=== PATIENT | male | born 1940 | race Caucasian/White ===

== ENCOUNTER 2017-02-22 09:04 | Observation (INO) | payer OTHER ==
[~2017-02-22] VITALS: Ht 175.3 cm; Wt 80.1 kg
[~2017-02-22 09:04] MED LIST: AEC81 PO; AMLO-334 PO; ATOR40TA71 PO; CLON0.1T PO; DOXA4TAB3 PO; ISOS60TA4 PO; LABE300T PO; LEVO25TA54 PO; LINA5TAB PO; METF10004 PO; RANO10003 PO
[2017-02-22 09:35] LABS: BASOPHILS % (AUTO) 0.9 % (0.0-5.0); EOSINOPHILS % (AUTO) 3.3 % (0.0-8.0); HEMATOCRIT 44.8 % (42-54); LYMPHOCYTES % (AUTO) 23.5 % (21.0-51.0); MEAN CORPUSCULAR HEMOGLOBIN 31.8 pg (27.0-33.0); MEAN CORPUSCULAR HGB CONC 33.4 g/dL (32.0-36.0); MEAN CORPUSCULAR VOLUME 95.1 fL (79-99); MONOCYTES % (AUTO) 10.1 % (3.0-13.0); NEUTROPHILS % (AUTO) 62.2 % (40.0-77.0); PLATELET COUNT (AUTO) 174 K/uL (130-400); RED BLOOD CELL COUNT(AUTO) 4.71 MIL/uL (4.50-6.20); RED CELL DISTRIBUTION WIDTH 13.8 % (11.0-15.5)
[2017-02-22 09:46] LABS: INR 1.01 (0.85-1.15); PARTIAL THROMBOPLASTIN TIME 24.5 SEC (26.3-35.5); PROTHROMBIN TIME 10.6 SEC (9.6-11.6)
[2017-02-22 09:57] LABS: CARBON DIOXIDE 20 mmol/L (21-32); CHLORIDE 102 mmol/L (101-111); CREATININE 1.5 mg/dL (0.5-1.5); GLOMERULAR FILTR. RATE CALC 49 mL/min (>60); GLUCOSE,RANDOM 215 mg/dL (70-105); POTASSIUM 4.6 mmol/L (3.5-5.1); SODIUM SERUM 136 mmol/L (136-145); UREA NITROGEN, BLOOD 26 mg/dL (7-18)
[2017-02-22 10:12] LABS: ALANINE AMINOTRANSFERASE 47 U/L (12-78); ALBUMIN 4.2 g/dL (3.5-5.0); ASPARTATE AMINOTRANSFERASE 24 U/L (10-37); BILIRUBIN,TOTAL 0.6 mg/dL (0.2-1.0); CREATINE KINASE MB < 0.5 ng/mL (0.5-3.6); CREATINE KINASE, TOTAL 67 U/L (21-232); TOTAL PROTEIN, SERUM 7.5 g/dL (6.0-8.3)
[2017-02-22] MEDS ORDERED: MECLIZINE HCL 25 MG TABLET ONE (13:12)
[2017-02-22 15:39] VITALS: BP 161/80
[2017-02-22 15:40] VITALS: BP_SYST 136; BP_SYST 153; BP_DIAS 72; BP_DIAS 75
[2017-02-22] MEDS ORDERED: HYDRALAZINE HCL 20 MG/ML VIAL IV PRN (15:45)
[2017-02-22] MEDS ORDERED: MECLIZINE HCL 25 MG TABLET PO PRN (15:45)
[2017-02-22] MEDS ORDERED: CLONIDINE HCL 0.1 MG TABLET PO PRN (17:00)
[2017-02-22] MEDS ORDERED: GLIP5TAB11 PO (17:02)
[2017-02-22] MEDS ORDERED: CLOP75TA32 PO (17:02)
[2017-02-22] MEDS ORDERED: PANT40TA25 PO (17:02)
[2017-02-22] MEDS ORDERED: METF10004 PO (17:02)
[2017-02-22] MEDS ORDERED: DEXTROSE 50%-WATER 50 ML DISP.SYRIN IV PRN (17:30)
[2017-02-22] MEDS ORDERED: GLUCAGON 1MG KIT 1 MG ML IM PRN (17:30)
[2017-02-22 19:30] VITALS: BP 113/66
[2017-02-22 20:47] VITALS: BP 143/77
[2017-02-22] MEDS: RANOLAZINE 500 MG TAB.SR.12H PO SCH (20:52)
[2017-02-22] MEDS: GLIPIZIDE 5 MG TABLET PO SCH (20:52)
[2017-02-22] MEDS: ATORVASTATIN CALCIUM 40 MG TABLET PO SCH (20:52)
[2017-02-22] MEDS: INSULIN HUMULIN R 100 UNIT/ML 3ML SQ SCH (20:58)
[2017-02-22] MEDS ORDERED: LABETALOL HCL 100 MG TABLET PO SCH (21:00)
[2017-02-22] MEDS ORDERED: DOXAZOSIN MESYLATE 2 MG TABLET PO SCH (21:00)
[2017-02-22] MEDS: SODIUM CHLORIDE 0.9% 1000ML 1,000 ML IV SCH (22:54)
[2017-02-23] VITALS (9 sets, daily range): BP systolic 91–165; BP diastolic 51–81
[2017-02-23 05:21] LABS: MEAN CORPUSCULAR HEMOGLOBIN 32.6 pg (27.0-33.0); MEAN CORPUSCULAR HGB CONC 34.5 g/dL (32.0-36.0); MEAN CORPUSCULAR VOLUME 94.5 fL (79-99); PLATELET COUNT (AUTO) 173 K/uL (130-400); RED BLOOD CELL COUNT(AUTO) 4.34 MIL/uL (4.50-6.20); RED CELL DISTRIBUTION WIDTH 13.7 % (11.0-15.5); WHITE BLOOD COUNT (AUTO) 8.7 K/uL (4.8-10.8)
[2017-02-23] MEDS: INSULIN HUMULIN R 100 UNIT/ML 3ML SQ SCH ×3 (05:31→21:00)
[2017-02-23 05:35] LABS: HEMOGLOBIN A1C 6.9 % (4.0-6.0)
[2017-02-23 05:48] LABS: CREATININE 1.5 mg/dL (0.5-1.5); POTASSIUM 4.2 mmol/L (3.5-5.1); THYROID STIMULATING HORMONE 4.71 uIU/mL (0.36-3.74)
[2017-02-23] MEDS: LEVOTHYROXINE 25 MCG TABLET PO SCH (05:48)
[2017-02-23] MEDS ORDERED: ISOSORBIDE MONO 60 MG TAB.SR PO SCH (09:00)
[2017-02-23] MEDS ORDERED: AMLODIPINE VALSARTAN PO SCH (09:00)
[2017-02-23] MEDS: GLIPIZIDE 5 MG TABLET PO SCH (09:03)
[2017-02-23] MEDS: RANOLAZINE 500 MG TAB.SR.12H PO SCH ×2 (09:03→20:18)
[2017-02-23] MEDS: METFORMIN HCL 500 MG TAB.SR.24H PO SCH (09:03)
[2017-02-23] MEDS: ASPIRIN 81 MG EC TAB PO SCH (09:04)
[2017-02-23] MEDS: PANTOPRAZOLE SODIUM 40 MG TABLET.DR PO SCH (09:04)
[2017-02-23] MEDS: CLOPIDOGREL BISULFATE 75 MG TAB PO SCH (09:06)
[2017-02-23] MEDS: SODIUM CHLORIDE 0.9% 1000ML 1,000 ML IV SCH (11:20)
[2017-02-23] MEDS ORDERED: SODIUM CHLORIDE 0.9% 1000ML 1,000 ML IV SCH (12:13)
[2017-02-23] MEDS: ATORVASTATIN CALCIUM 40 MG TABLET PO SCH (20:18)
[2017-02-23] MEDS: LABETALOL HCL 100 MG TABLET PO SCH (20:19)
[2017-02-24] VITALS (9 sets, daily range): BP systolic 121–186; BP diastolic 70–99
[2017-02-24 05:15] LABS: CREATININE 1.5 mg/dL (0.5-1.5); POTASSIUM 4.1 mmol/L (3.5-5.1)
[2017-02-24] MEDS: INSULIN HUMULIN R 100 UNIT/ML 3ML SQ SCH ×4 (06:24→21:00)
[2017-02-24] MEDS: GLIPIZIDE 5 MG TABLET PO SCH ×2 (06:27→16:30)
[2017-02-24] MEDS: LEVOTHYROXINE 25 MCG TABLET PO SCH (06:27)
[2017-02-24] MEDS: ASPIRIN 81 MG EC TAB PO SCH (08:37)
[2017-02-24] MEDS: LABETALOL HCL 100 MG TABLET PO SCH ×2 (08:38→21:02)
[2017-02-24] MEDS: METFORMIN HCL 500 MG TAB.SR.24H PO SCH (08:38)
[2017-02-24] MEDS: RANOLAZINE 500 MG TAB.SR.12H PO SCH ×2 (08:38→21:04)
[2017-02-24] MEDS: PANTOPRAZOLE SODIUM 40 MG TABLET.DR PO SCH (08:38)
[2017-02-24] MEDS: ISOSORBIDE MONO 30MG TAB SR PO SCH (08:38)
[2017-02-24] MEDS: CLOPIDOGREL BISULFATE 75 MG TAB PO SCH (08:38)
[2017-02-24] MEDS: ATORVASTATIN CALCIUM 40 MG TABLET PO SCH (21:02)
[2017-02-25] VITALS: BP 169/88
[2017-02-25 04:00] VITALS: BP 188/93
[2017-02-25] MEDS: GLIPIZIDE 5 MG TABLET PO SCH (06:21)
[2017-02-25] MEDS: LEVOTHYROXINE 25 MCG TABLET PO SCH (06:21)
[2017-02-25] MEDS: INSULIN HUMULIN R 100 UNIT/ML 3ML SQ SCH ×2 (06:26→11:30)
[2017-02-25 06:50] VITALS: BP 184/94
[2017-02-25 07:30] VITALS: BP 180/88
[2017-02-25] MEDS: ASPIRIN 81 MG EC TAB PO SCH (08:54)
[2017-02-25] MEDS: ISOSORBIDE MONO 30MG TAB SR PO SCH (08:55)
[2017-02-25] MEDS: PANTOPRAZOLE SODIUM 40 MG TABLET.DR PO SCH (08:55)
[2017-02-25] MEDS: RANOLAZINE 500 MG TAB.SR.12H PO SCH (08:55)
[2017-02-25] MEDS: LABETALOL HCL 100 MG TABLET PO SCH (08:55)
[2017-02-25] MEDS: METFORMIN HCL 500 MG TAB.SR.24H PO SCH (08:55)
[2017-02-25] MEDS: CLOPIDOGREL BISULFATE 75 MG TAB PO SCH (08:55)
[2017-02-25] MEDS ORDERED: LOSARTAN 100 MG TABLET PO SCH (09:00)
[2017-02-25 11:00] VITALS: BP 150/86
[2017-02-25] MEDS ORDERED: LOSA100T2 PO (12:31)
[2017-02-25] MEDS ORDERED: ISOS60TA4 PO (12:31)
[2017-02-25] MEDS ORDERED: LABE100T PO (12:31)
[2017-02-25 16:00] VITALS: BP_SYST 119; BP_SYST 122; BP_SYST 164; BP_DIAS 73; BP_DIAS 74; BP_DIAS 95
== END 2017-02-25 17:20 | disposition home or self-care (01) ==
LOC: EDH 09:04 → EDHIP 13:20 → 4AH 14:50
PROVIDERS: ADMIT Family Medicine; ATTEND Family Medicine
DX: I95.1 Orthostatic hypotension (principal); E11.22 Type 2 diabetes mellitus with diabetic chronic kidney disease; I25.10 Atherosclerotic heart disease of native coronary artery without angina pectoris; E11.65 Type 2 diabetes mellitus with hyperglycemia; I13.0 Hypertensive heart and chronic kidney disease with heart failure and stage 1 through stage 4 chronic kidney disease, or unspecified chronic kidney disease; N18.3 Chronic kidney disease, stage 3 (moderate); E78.5 Hyperlipidemia, unspecified; I50.9 Heart failure, unspecified; E03.9 Hypothyroidism, unspecified; Z83.3 Family history of diabetes mellitus; Z80.9 Family history of malignant neoplasm, unspecified; Z95.1 Presence of aortocoronary bypass graft
CPT/HCPCS: 36415 ×3; 70450; 70551; 71010; 80048 ×2; 80053; 82140; 82550; 82553; 82948 ×12; 83036; 84443; 84484; 85025; 85027; 85610; 85730; 93005; 96361 ×3; 96372 ×2; 96374; 99285; G0378 ×76; J0360; J1815 ×2; J7030

== ENCOUNTER 2017-08-16 08:56 | Emergency (ER) | payer OTHER ==
[~2017-08-16 08:56] MED LIST changes: -AMLO-334 PO; +CLOP75TA32 PO; -DOXA4TAB3 PO; +GLIP5TAB11 PO; +LABE100T5 PO; -LABE300T PO; -LINA5TAB PO; +LOSA100T2 PO; +PANT40TA25 PO
[2017-08-16 09:26] LABS: BASOPHILS % (AUTO) 0.6 % (0.0-5.0); EOSINOPHILS % (AUTO) 4.4 % (0.0-8.0); HEMATOCRIT 41.8 % (42-54); LYMPHOCYTES % (AUTO) 19.3 % (21.0-51.0); MEAN CORPUSCULAR HEMOGLOBIN 33.2 pg (27.0-33.0); MEAN CORPUSCULAR HGB CONC 34.9 g/dL (32.0-36.0); MEAN CORPUSCULAR VOLUME 95.1 fL (79-99); MONOCYTES % (AUTO) 9.3 % (3.0-13.0); NEUTROPHILS % (AUTO) 66.4 % (40.0-77.0); PLATELET COUNT (AUTO) 167 K/uL (130-400); RED BLOOD CELL COUNT(AUTO) 4.39 MIL/uL (4.50-6.20); RED CELL DISTRIBUTION WIDTH 13.6 % (11.0-15.5); WHITE BLOOD COUNT (AUTO) 9.6 K/uL (4.8-10.8)
[2017-08-16 09:33] LABS: CREATININE 1.7 mg/dL (0.5-1.5); POTASSIUM 4.2 mmol/L (3.5-5.1)
[2017-08-16 09:35] LABS: APPEARANCE,URINE Clear (CLEAR); BILIRUBIN,URINE Negative (NEGATIVE); COLOR,URINE Yellow (YELLOW); GLUCOSE, URINE (UA) Negative (NEGATIVE); KETONES,URINE Negative (NEGATIVE); LEUKOCYTE ESTERASE ,URINE Moderate (NEGATIVE); NITRATE,URINE Negative (NEGATIVE); OCCULT BLOOD,URINE Negative (NEGATIVE); PROTEIN,URINE POS 1+ (NEGATIVE)
[2017-08-16 09:38] LABS: ALBUMIN 4.4 g/dL (3.5-5.0); BILIRUBIN,TOTAL 0.6 mg/dL (0.2-1.0); TOTAL PROTEIN, SERUM 7.6 g/dL (6.0-8.3)
[2017-08-16 09:44] LABS: BACTERIA,URINE Rare /HPF (None Seen); RBC,URINE 0-1 /HPF (0-1); SQUAMOUS EPITHELIAL CELL,UR Few /HPF (0-2)
[2017-08-16] MEDS ORDERED: SODIUM CHLORIDE 0.9% 1000ML 1,000 ML IV ONE (09:44)
== END 2017-08-16 13:06 | disposition home or self-care (01) ==
LOC: EDH 08:56
DX: R10.9 Unspecified abdominal pain (principal); N39.0 Urinary tract infection, site not specified; K59.00 Constipation, unspecified; I25.10 Atherosclerotic heart disease of native coronary artery without angina pectoris; I10 Essential (primary) hypertension; E11.9 Type 2 diabetes mellitus without complications; E07.9 Disorder of thyroid, unspecified; K21.9 Gastro-esophageal reflux disease without esophagitis; E78.5 Hyperlipidemia, unspecified; Z88.8 Allergy status to other drugs, medicaments and biological substances; Z87.891 Personal history of nicotine dependence; Z95.1 Presence of aortocoronary bypass graft; Z98.890 Other specified postprocedural states
CPT/HCPCS: 36415; 74176; 76705; 81001; 80053; 83690; 85025; 87088; 99285; J7030

== ENCOUNTER 2018-01-20 11:27 | Emergency (ER) | payer OTHER ==
[~2018-01-20 11:27] MED LIST changes: +METF-446 PO; -METF10004 PO
== END 2018-01-20 12:15 | disposition home or self-care (01) ==
LOC: EDH 11:27
DX: R21 Rash and other nonspecific skin eruption (principal); I10 Essential (primary) hypertension; E11.9 Type 2 diabetes mellitus without complications; I25.810 Atherosclerosis of coronary artery bypass graft(s) without angina pectoris; E07.9 Disorder of thyroid, unspecified; K21.9 Gastro-esophageal reflux disease without esophagitis; Z98.890 Other specified postprocedural states; Z91.041 Radiographic dye allergy status

== ENCOUNTER → 2018-01-21 | Outpatient (CLI) | payer OTHER | END | disposition home or self-care (01) | LOC: RAH 11:28 | PROVIDERS: ATTEND Internal Medicine Critical Care Medicine | DX: R05 Cough (principal); M47.895 Other spondylosis, thoracolumbar region; E11.9 Type 2 diabetes mellitus without complications; E03.9 Hypothyroidism, unspecified | CPT/HCPCS: 71046 ==

== ENCOUNTER 2018-12-25 07:18 | Emergency (ER) | payer OTHER ==
[2018-12-25] MEDS ORDERED: KETOROLAC TROMETHAMINE 30MG/ML ONE (07:36)
[2018-12-25 07:56] LABS: BASOPHILS % (AUTO) 0.8 % (0.0-5.0); EOSINOPHILS % (AUTO) 1.8 % (0.0-8.0); HEMATOCRIT 43.5 % (42-54); LYMPHOCYTES % (AUTO) 21.5 % (21.0-51.0); MEAN CORPUSCULAR HEMOGLOBIN 31.9 pg (27.0-33.0); MEAN CORPUSCULAR VOLUME 93.9 fL (79-99); MONOCYTES % (AUTO) 8.6 % (3.0-13.0); NEUTROPHILS % (AUTO) 67.3 % (40.0-77.0); PLATELET COUNT (AUTO) 168 K/uL (130-400); RED BLOOD CELL COUNT(AUTO) 4.63 MIL/uL (4.50-6.20); RED CELL DISTRIBUTION WIDTH 13.7 % (11.0-15.5); WHITE BLOOD COUNT (AUTO) 10.3 K/uL (4.8-10.8)
[2018-12-25 08:14] LABS: CREATININE 1.6 mg/dL (0.5-1.5); POTASSIUM 5.4 mmol/L (3.5-5.1)
== END 2018-12-25 09:03 | disposition home or self-care (01) ==
LOC: EDH 07:18
DX: M10.061 Idiopathic gout, right knee (principal)
CPT/HCPCS: 36415; 73562; 80048; 84550; 85025; 96372; 99285; J1885

== ENCOUNTER 2019-07-03 08:04 | Emergency (ER) | payer OTHER ==
[~2019-07-03 08:04] MED LIST changes: -PANT40TA25 PO; +PANT40TA54 PO
[2019-07-03] MEDS ORDERED: MORPHINE SULFATE 4 MG/1ML SYG ONE (08:24)
[2019-07-03] MEDS ORDERED: ONDANSETRON HCL 4 MG/2 ML VIAL ONE (08:24)
[2019-07-03 08:25] LABS: EOSINOPHILS % (AUTO) 26.3 % (0.0-8.0); HEMATOCRIT 40.9 % (42-54); MEAN CORPUSCULAR HEMOGLOBIN 31.6 pg (27.0-33.0); MEAN CORPUSCULAR HGB CONC 33.5 g/dL (32.0-36.0); MEAN CORPUSCULAR VOLUME 94.2 fL (79-99); MONOCYTES % (AUTO) 6.1 % (3.0-13.0); PLATELET COUNT (AUTO) 177 K/uL (130-400); RED BLOOD CELL COUNT(AUTO) 4.34 MIL/uL (4.50-6.20); RED CELL DISTRIBUTION WIDTH 14.3 % (11.0-15.5); WHITE BLOOD COUNT (AUTO) 13.4 K/uL (4.8-10.8)
[2019-07-03 09:04] LABS: CREATININE 1.8 mg/dL (0.5-1.5); POTASSIUM 4.1 mmol/L (3.5-5.1)
== END 2019-07-03 09:55 | disposition home or self-care (01) ==
LOC: EDH 08:04
DX: L03.031 Cellulitis of right toe (principal); E11.9 Type 2 diabetes mellitus without complications; E78.5 Hyperlipidemia, unspecified; I10 Essential (primary) hypertension; I25.10 Atherosclerotic heart disease of native coronary artery without angina pectoris; K21.9 Gastro-esophageal reflux disease without esophagitis; Z91.041 Radiographic dye allergy status
CPT/HCPCS: 36415; 73620; 80048; 85025; 96374; 96375; 99284; J2270; J2405

== ENCOUNTER → 2020-01-05 | Outpatient (CLI) | payer OTHER | END | disposition home or self-care (01) | LOC: RAH 08:20 | PROVIDERS: ATTEND Internal Medicine Gastroenterology | DX: K57.30 Diverticulosis of large intestine without perforation or abscess without bleeding (principal); K76.89 Other specified diseases of liver; I71.4 Abdominal aortic aneurysm, without rupture; I70.90 Unspecified atherosclerosis | CPT/HCPCS: 74176 ==

== ENCOUNTER 2020-11-11 13:01 | Emergency (ER) | payer OTHER ==
[~2020-11-11] VITALS: Ht 175.3 cm; Wt 79.8 kg
[~2020-11-11 13:01] MED LIST changes: -ISOS60TA4 PO; +ISOS60TA77 PO
[2020-11-11 14:06] LABS: EOSINOPHILS % (AUTO) 4.8 % (0.0-8.0); HEMATOCRIT 43.3 % (42-54); LYMPHOCYTES % (AUTO) 28.3 % (21.0-51.0); MEAN CORPUSCULAR HEMOGLOBIN 31.7 pg (27.0-33.0); MEAN CORPUSCULAR HGB CONC 32.6 g/dL (32.0-36.0); MEAN CORPUSCULAR VOLUME 97.3 fL (79-99); NEUTROPHILS % (AUTO) 57.4 % (40.0-77.0); PLATELET COUNT (AUTO) 160 K/uL (130-400); RED BLOOD CELL COUNT(AUTO) 4.45 MIL/uL (4.50-6.20); RED CELL DISTRIBUTION WIDTH 14.3 % (11.0-15.5); WHITE BLOOD COUNT (AUTO) 7.8 K/uL (4.8-10.8)
[2020-11-11 14:16] LABS: CREATININE 1.9 mg/dL (0.5-1.5); POTASSIUM 4.8 mmol/L (3.5-5.1)
[2020-11-11 14:19] LABS: ALBUMIN 4.2 g/dL (3.5-5.0); BILIRUBIN,TOTAL 0.6 mg/dL (0.2-1.0); TOTAL PROTEIN, SERUM 7.3 g/dL (6.0-8.3)
[2020-11-11 14:36] LABS: B-TYPE NATRIURETIC PEPTIDE 14 pg/mL (0-100)
[2020-11-11] MEDS ORDERED: NA ZIRCON CYCLOSIL(LOKELMA 10GM) PO ONE (16:00)
[2020-11-11 16:39] VITALS: BP 146/77
[2020-11-11 19:11] LABS: APPEARANCE,URINE Clear (CLEAR); BILIRUBIN,URINE Negative (NEGATIVE); COLOR,URINE Yellow (YELLOW); GLUCOSE, URINE (UA) Negative (NEGATIVE); KETONES,URINE Negative (NEGATIVE); LEUKOCYTE ESTERASE ,URINE Trace (NEGATIVE); NITRATE,URINE Negative (NEGATIVE); OCCULT BLOOD,URINE Negative (NEGATIVE); PH,URINE 5.5 (5.0-8.0); PROTEIN,URINE POS 1+ mg/dL (NEGATIVE); UROBILINOGEN,URINE 0.2 mg/dL (0.2-1.0)
[2020-11-11 19:18] LABS: BACTERIA,URINE Rare /HPF (None Seen); MUCUS,URINE Few LPF (None Seen); SQUAMOUS EPITHELIAL CELL,UR Rare /HPF (0-2)
[2020-11-12 01:41] VITALS: BP 127/59
[2020-11-12] MEDS ORDERED: GADOTERATE MEGLUMINE 10 MMOL/20 ML VIAL IV ONE (07:49)
[2020-11-12 09:51] VITALS: BP 165/79
[2020-11-12 11:22] VITALS: BP 162/97
== END 2020-11-12 11:56 | disposition home or self-care (01) ==
LOC: EDH 13:01
DX: R25.1 Tremor, unspecified (principal); I25.10 Atherosclerotic heart disease of native coronary artery without angina pectoris; J44.9 Chronic obstructive pulmonary disease, unspecified; E78.5 Hyperlipidemia, unspecified; E11.9 Type 2 diabetes mellitus without complications; Z20.822 Contact with and (suspected) exposure to COVID-19; K21.9 Gastro-esophageal reflux disease without esophagitis; E03.9 Hypothyroidism, unspecified; I10 Essential (primary) hypertension; E78.00 Pure hypercholesterolemia, unspecified; Z98.890 Other specified postprocedural states; Z87.891 Personal history of nicotine dependence; Z88.5 Allergy status to narcotic agent; Z79.899 Other long term (current) drug therapy; Z79.84 Long term (current) use of oral hypoglycemic drugs; Z79.82 Long term (current) use of aspirin
CPT/HCPCS: 36415; 70450; 70551; 71045; 72100; 72141; 80053; 81001; 82550; 83880; 84484; 85025; 87635; 93005; 99285; C9803

== ENCOUNTER → 2021-06-21 | Outpatient (CLI) | payer OTHER | END | disposition home or self-care (01) | LOC: RAH 13:42 | PROVIDERS: ATTEND Physician Assistant | DX: M43.17 Spondylolisthesis, lumbosacral region (principal); M47.817 Spondylosis without myelopathy or radiculopathy, lumbosacral region; M48.07 Spinal stenosis, lumbosacral region; M47.814 Spondylosis without myelopathy or radiculopathy, thoracic region; M85.88 Other specified disorders of bone density and structure, other site; N19 Unspecified kidney failure; Z88.8 Allergy status to other drugs, medicaments and biological substances | CPT/HCPCS: 72074; 72114 ==

== ENCOUNTER 2021-08-09 06:39 | Day surgery (SDC) | payer OTHER ==
[2021-08-05 09:13] LABS: PROTHROMBIN TIME 10.9 SEC (9.6-11.6)
[2021-08-05 09:14] LABS: APPEARANCE,URINE Clear (CLEAR); BILIRUBIN,URINE Negative (NEGATIVE); COLOR,URINE Yellow (YELLOW); GLUCOSE, URINE (UA) Negative (NEGATIVE); KETONES,URINE Negative (NEGATIVE); LEUKOCYTE ESTERASE ,URINE Small (NEGATIVE); NITRATE,URINE Negative (NEGATIVE); OCCULT BLOOD,URINE Negative (NEGATIVE); PROTEIN,URINE POS 2+ mg/dL (NEGATIVE)
[2021-08-05 09:14] LABS: PARTIAL THROMBOPLASTIN TIME 25.6 SEC (26.3-35.5)
[2021-08-05 09:16] LABS: BASOPHILS % (AUTO) 0.7 % (0.0-5.0); EOSINOPHILS % (AUTO) 4.1 % (0.0-8.0); HEMATOCRIT 45.2 % (42-54); LYMPHOCYTES % (AUTO) 21.8 % (21.0-51.0); MEAN CORPUSCULAR VOLUME 97.2 fL (79-99); MONOCYTES % (AUTO) 7.8 % (3.0-13.0); NEUTROPHILS % (AUTO) 65.2 % (40.0-77.0); PLATELET COUNT (AUTO) 155 K/uL (130-400); RED BLOOD CELL COUNT(AUTO) 4.65 MIL/uL (4.50-6.20); WHITE BLOOD COUNT (AUTO) 8.3 K/uL (4.8-10.8)
[2021-08-05 09:20] LABS: BACTERIA,URINE Rare /HPF (None Seen); RBC,URINE 0-1 /HPF (0-1); SQUAMOUS EPITHELIAL CELL,UR Rare /HPF (0-2); WBC,URINE 0-1 /HPF (0-1)
[2021-08-05 09:20] LABS: CREATININE 1.7 mg/dL (0.5-1.5); POTASSIUM 4.9 mmol/L (3.5-5.1)
[2021-08-05 09:26] LABS: B-TYPE NATRIURETIC PEPTIDE 18 pg/mL (0-100)
[2021-08-08 11:41] VITALS: BP 120/71
[2021-08-09] VITALS (10 sets, daily range): BP systolic 114–163; BP diastolic 69–86
[~2021-08-09] VITALS: Ht 175.3 cm; Wt 76.5 kg
[~2021-08-09 06:39] MED LIST changes: +CLON-465 PO; -CLON0.1T PO; +CLOP75TA14 PO; -CLOP75TA32 PO; +DULA0.75 SQ; +DiphenhydrAMINE HCL 50 MG/ML VIAL IVP SCH; -GLIP5TAB11 PO; +INSU100I26 SQ; -LABE100T5 PO; +LABE200T5 PO; +LABE300T2 PO; -LEVO25TA54 PO; +LINA145C PO; -LOSA100T2 PO; +METF-444 PO; -METF-446 PO; -PANT40TA54 PO; +PRED20TA3 PO; -RANO10003 PO; +SOLU-MEDROL 125MG VIAL IVP SCH; +TELM1TAB PO; +TRAM50TA4 PO
[2021-08-09] MEDS ORDERED: 0.9%NACL 1000ML 1,000 ML IV ONE (07:22)
[2021-08-09] MEDS ORDERED: IOHEXOL-350 75 ML VIAL IV ONE ×2 (10:46→10:47)
[2021-08-09] MEDS ORDERED: LIDOCAINE HCL 1% MDV 50ML VIAL ONE (10:46)
[2021-08-09] MEDS ORDERED: NITROGLYCERIN 50MG VIAL ONE (10:46)
[2021-08-09] MEDS ORDERED: IOHEXOL-350 50ML VIAL IV ONE (10:46)
[2021-08-09] MEDS: FAMOTIDINE 20MG VIAL IV SCH ×2 (10:48→10:52)
[2021-08-09] MEDS ORDERED: FENTANYL CITRATE PF 50 MCG/1 ML 2ML VIAL ONE ×2 (11:05→12:37)
[2021-08-09] MEDS ORDERED: MIDAZOLAM HCL 1 MG/ML 2ML VIAL ONE (11:05)
[2021-08-09] MEDS ORDERED: 0.9%NACL 1000ML 1,000 ML IV SCH (13:00)
== END 2021-08-09 17:00 | disposition home or self-care (01) ==
LOC: DAH 06:39
PROVIDERS: ATTEND Internal Medicine Cardiovascular Disease
DX: I25.810 Atherosclerosis of coronary artery bypass graft(s) without angina pectoris (principal); I25.119 Atherosclerotic heart disease of native coronary artery with unspecified angina pectoris; I25.82 Chronic total occlusion of coronary artery; E11.22 Type 2 diabetes mellitus with diabetic chronic kidney disease; I12.9 Hypertensive chronic kidney disease with stage 1 through stage 4 chronic kidney disease, or unspecified chronic kidney disease; N18.30 Chronic kidney disease, stage 3 unspecified; I25.2 Old myocardial infarction; E03.9 Hypothyroidism, unspecified; M17.0 Bilateral primary osteoarthritis of knee; E78.2 Mixed hyperlipidemia; Z79.1 Long term (current) use of non-steroidal anti-inflammatories (NSAID); Z79.01 Long term (current) use of anticoagulants; Z79.899 Other long term (current) drug therapy; Z98.890 Other specified postprocedural states; Z79.82 Long term (current) use of aspirin; Z79.890 Hormone replacement therapy; Z83.3 Family history of diabetes mellitus; Z80.9 Family history of malignant neoplasm, unspecified
CPT/HCPCS: 36415; 71045; 80048; 81001; 82948; 83880; 85025; 85610; 85730; 93005; 93459; A4215; A4216; A4221; A4222; A4223 ×3; A4606; A4663; C1760; C1769 ×2; C1894 ×5; J1200; J1644; J2250; J2930; J3010 ×2; J3490 ×3; J7030; Q9967; 99156; 99157

== ENCOUNTER → 2021-09-13 | Outpatient (CLI) | payer OTHER ==
[~2021-09-13] MED LIST changes: -CLOP75TA14 PO; -DiphenhydrAMINE HCL 50 MG/ML VIAL IVP SCH; -SOLU-MEDROL 125MG VIAL IVP SCH
== END | disposition home or self-care (01) ==
LOC: RAH 07:30
PROVIDERS: ATTEND Pain Medicine Interventional Pain Medicine
DX: M54.50 Low back pain, unspecified (principal)
CPT/HCPCS: 72100

== ENCOUNTER 2021-10-31 11:50 | Emergency (ER) | payer OTHER ==
[~2021-10-31 11:50] MED LIST changes: -LABE200T5 PO; +LABE200T7 PO; -LABE300T2 PO; +LABE300T4 PO
[2021-10-31 12:19] LABS: BASOPHILS % (AUTO) 0.6 % (0.0-5.0); EOSINOPHILS % (AUTO) 2.1 % (0.0-8.0); HEMATOCRIT 41.7 % (42-54); LYMPHOCYTES % (AUTO) 12.8 % (21.0-51.0); MEAN CORPUSCULAR HEMOGLOBIN 32.8 pg (27.0-33.0); MEAN CORPUSCULAR HGB CONC 33.8 g/dL (32.0-36.0); MONOCYTES % (AUTO) 10.4 % (3.0-13.0); NEUTROPHILS % (AUTO) 73.5 % (40.0-77.0); PLATELET COUNT (AUTO) 165 K/uL (130-400); RED CELL DISTRIBUTION WIDTH 14.9 % (11.0-15.5); WHITE BLOOD COUNT (AUTO) 8.9 K/uL (4.8-10.8)
[2021-10-31 12:56] LABS: POTASSIUM 4.4 mmol/L (3.5-5.1)
[2021-10-31 13:00] LABS: ALBUMIN 4.4 g/dL (3.5-5.0); TOTAL PROTEIN, SERUM 7.2 g/dL (6.0-8.3)
[2021-10-31] MEDS ORDERED: 0.9%NACL 1000ML 1,000 ML IV ONE (13:30)
[2021-10-31] MEDS ORDERED: NIRM1TAB PO (15:08)
[2021-10-31 15:20] VITALS: BP 145/80
[2021-10-31 15:31] LABS: APPEARANCE,URINE CLEAR (CLEAR); BILIRUBIN,URINE NEGATIVE (NEGATIVE); COLOR,URINE YELLOW (YELLOW); GLUCOSE, URINE (UA) NEGATIVE (NEGATIVE); KETONES,URINE NEGATIVE (NEGATIVE); LEUKOCYTE ESTERASE ,URINE NEGATIVE (NEGATIVE); NITRATE,URINE NEGATIVE (NEGATIVE); OCCULT BLOOD,URINE NEGATIVE (NEGATIVE); PROTEIN,URINE NEGATIVE (NEGATIVE); UROBILINOGEN,URINE 0.2 mg/dL (0.2-1.0)
== END 2021-10-31 15:47 | disposition home or self-care (01) ==
LOC: EDH 11:50
DX: U07.1 COVID-19 (principal); I48.91 Unspecified atrial fibrillation; I25.10 Atherosclerotic heart disease of native coronary artery without angina pectoris; J44.9 Chronic obstructive pulmonary disease, unspecified; E11.9 Type 2 diabetes mellitus without complications; E78.00 Pure hypercholesterolemia, unspecified; R19.7 Diarrhea, unspecified; I10 Essential (primary) hypertension; E03.9 Hypothyroidism, unspecified; Z88.8 Allergy status to other drugs, medicaments and biological substances; Z79.899 Other long term (current) drug therapy; Z79.84 Long term (current) use of oral hypoglycemic drugs; Z79.4 Long term (current) use of insulin; Z98.890 Other specified postprocedural states
CPT/HCPCS: 99285; 96360; 71045; 87635; 84484; 80053; 85025; 87804 ×2; 81003; 36415; 93005; C9803; J7030

== ENCOUNTER 2022-04-04 13:02 | Emergency (ER) | payer OTHER ==
[~2022-04-04] VITALS: Ht 172.7 cm; Wt 81.6 kg
[~2022-04-04 13:02] MED LIST changes: +NIRM1TAB PO
[2022-04-04 13:42] LABS: BASOPHILS % (AUTO) 0.9 % (0.0-5.0); EOSINOPHILS % (AUTO) 3.8 % (0.0-8.0); HEMATOCRIT 42.2 % (42-54); LYMPHOCYTES % (AUTO) 27.1 % (21.0-51.0); MEAN CORPUSCULAR HEMOGLOBIN 31.6 pg (27.0-33.0); MEAN CORPUSCULAR HGB CONC 33.6 g/dL (32.0-36.0); MONOCYTES % (AUTO) 8.7 % (3.0-13.0); NEUTROPHILS % (AUTO) 58.8 % (40.0-77.0); PLATELET COUNT (AUTO) 166 K/uL (130-400); RED BLOOD CELL COUNT(AUTO) 4.49 MIL/uL (4.50-6.20); RED CELL DISTRIBUTION WIDTH 13.8 % (11.0-15.5); WHITE BLOOD COUNT (AUTO) 7.4 K/uL (4.8-10.8)
[2022-04-04 13:50] LABS: CREATININE 1.6 mg/dL (0.5-1.5)
[2022-04-04 13:55] LABS: ALBUMIN 3.8 g/dL (3.5-5.0); TOTAL PROTEIN, SERUM 6.7 g/dL (6.0-8.3)
[2022-04-04] MEDS ORDERED: 0.9%NACL 1000ML 1,000 ML IV ONE (14:00)
[2022-04-04 18:39] LABS: AMPHET/METH SCREEN,URINE NEGATIVE (NEGATIVE); BARBITURATE SCREEN, URINE NEGATIVE (NEGATIVE); BENZODIAZEPINES SCREEN,URINE NEGATIVE (NEGATIVE); CANNABINOID SCREEN,URINE NEGATIVE (NEGATIVE); COCAINE SCREEN,URINE NEGATIVE (NEGATIVE); OPIATE SCREEN,URINE NEGATIVE (NEGATIVE); PHENCYCLIDINE SCREEN,URINE NEGATIVE (NEGATIVE)
[2022-04-04 19:38] VITALS: BP 146/74
== END 2022-04-04 19:51 | disposition home or self-care (01) ==
LOC: EDH 13:02
DX: R55 Syncope and collapse (principal); R79.89 Other specified abnormal findings of blood chemistry; I10 Essential (primary) hypertension; E78.00 Pure hypercholesterolemia, unspecified; E03.9 Hypothyroidism, unspecified; J44.9 Chronic obstructive pulmonary disease, unspecified; F17.200 Nicotine dependence, unspecified, uncomplicated; Z88.8 Allergy status to other drugs, medicaments and biological substances; Z79.899 Other long term (current) drug therapy
CPT/HCPCS: 99285; 70450; 71045; 84484; 80053; 80305; 85025; 85378; 36415; 72125; 93005; J7030

== ENCOUNTER 2022-06-24 07:51 | Emergency (ER) | payer OTHER ==
[~2022-06-24] VITALS: Ht 175.3 cm; Wt 72.6 kg
[2022-06-24 08:10] LABS: BASOPHILS % (AUTO) 0.8 % (0.0-5.0); EOSINOPHILS % (AUTO) 2.9 % (0.0-8.0); HEMATOCRIT 45.5 % (42-54); LYMPHOCYTES % (AUTO) 17.3 % (21.0-51.0); MEAN CORPUSCULAR HEMOGLOBIN 31.9 pg (27.0-33.0); MEAN CORPUSCULAR HGB CONC 33.4 g/dL (32.0-36.0); MEAN CORPUSCULAR VOLUME 95.6 fL (79-99); MONOCYTES % (AUTO) 11.2 % (3.0-13.0); NEUTROPHILS % (AUTO) 67.3 % (40.0-77.0); PLATELET COUNT (AUTO) 176 K/uL (130-400); RED BLOOD CELL COUNT(AUTO) 4.76 MIL/uL (4.50-6.20); WHITE BLOOD COUNT (AUTO) 10.8 K/uL (4.8-10.8)
[2022-06-24 08:18] LABS: CREATININE 1.9 mg/dL (0.5-1.5); POTASSIUM 4.1 mmol/L (3.5-5.1)
[2022-06-24 08:27] LABS: ALBUMIN 4.2 g/dL (3.5-5.0); TOTAL PROTEIN, SERUM 7.2 g/dL (6.0-8.3)
[2022-06-24 09:00] LABS: INR 0.98 (0.85-1.15); PROTHROMBIN TIME 10.7 SEC (9.6-11.6)
[2022-06-24] MEDS ORDERED: MORPHINE 2 MG SYG IVP ONE ×2 (09:00→12:00)
[2022-06-24] MEDS ORDERED: ONDANSETRON 4MG INJ IVP ONE (09:00)
[2022-06-24 09:01] LABS: PARTIAL THROMBOPLASTIN TIME 24.8 SEC (26.3-35.5)
[2022-06-24] MEDS ORDERED: 0.9%NACL 1000ML 1,413 ML IV ONE (12:00)
[2022-06-24 13:31] LABS: APPEARANCE,URINE CLEAR (CLEAR); BILIRUBIN,URINE NEGATIVE (NEGATIVE); COLOR,URINE YELLOW (YELLOW); GLUCOSE, URINE (UA) NEGATIVE (NEGATIVE); KETONES,URINE NEGATIVE (NEGATIVE); LEUKOCYTE ESTERASE ,URINE 75 Leu/uL (NEGATIVE); NITRATE,URINE NEGATIVE (NEGATIVE); OCCULT BLOOD,URINE NEGATIVE (NEGATIVE); PH,URINE 5.5 (5.0-8.0); PROTEIN,URINE 100 mg/dL (NEGATIVE); UROBILINOGEN,URINE 0.2 mg/dL (0.2-1.0)
[2022-06-24 13:40] LABS: MUCUS,URINE RARE LPF (None Seen); SQUAMOUS EPITHELIAL CELL,UR RARE /HPF (0-2)
[2022-06-24] MEDS ORDERED: CEPH500B PO (14:21)
[2022-06-24] MEDS ORDERED: CEFTRIAXONE 1G VIAL IVPB ONE (14:30)
[2022-06-24 15:12] VITALS: BP 168/79
== END 2022-06-24 15:16 | disposition home or self-care (01) ==
LOC: EDH 07:51
DX: N39.0 Urinary tract infection, site not specified (principal); E86.0 Dehydration; J44.9 Chronic obstructive pulmonary disease, unspecified; E78.00 Pure hypercholesterolemia, unspecified; E03.9 Hypothyroidism, unspecified; F17.200 Nicotine dependence, unspecified, uncomplicated; Z79.52 Long term (current) use of systemic steroids; Z79.82 Long term (current) use of aspirin; Z79.84 Long term (current) use of oral hypoglycemic drugs; Z79.899 Other long term (current) drug therapy; Z95.1 Presence of aortocoronary bypass graft; Z88.8 Allergy status to other drugs, medicaments and biological substances
CPT/HCPCS: 99285; 74176; 96365; 76705; 71045; 96375; 96361; 84484; 80053; 83690; 85025; 85610; 85730; 87088; 81001; 36415; 96376; 93005; J0696; J2405

== ENCOUNTER → 2024-02-22 | Outpatient (CLI) | payer OTHER ==
[~2024-02-22] MED LIST changes: +ALLO100T PO; -ATOR40TA71 PO; -CLON-465 PO; +CLOP75TA32 PO; -DULA0.75 SQ; +DULO30CA52 PO; +EZET10TA48 PO; -INSU100I26 SQ; +ISOS20TA85 PO; -ISOS60TA77 PO; +LABE100T7 PO; -LABE300T4 PO; +LEVO25CA4 PO; -LINA145C PO; -METF-444 PO; -NIRM1TAB PO; +PANT40TA54 PO; -PRED20TA3 PO; +ROSU40TA88 PO; +SODI650T PO; -TELM1TAB PO; +TELM80TA10 PO; -TRAM50TA4 PO
--- NOTE | 2024-02-22 08:43 | HMCIMG ---
Carotid Duplex and color-flow Doppler bilateral Clinical Information: hyper heart Comparison: None Findings: Mild bilateral bifurcation plaque is seen. No hemodynamically significant stenosis noted. Left Internal Carotid Artery Peak Systolic Velocity (PSV), Left Internal Carotid to Common Carotid Artery peak systolic velocity ratio, Right Internal Carotid Artery Peak Systolic Velocity (PSV) and Right Internal Carotid to Common Carotid Artery peak systolic velocity ratio, are all within normal limits. External carotid artery velocities normal bilaterally. Bilateral vertebral arteries show normal velocities and waveforms with antegrade flow. Impression: No hemodynamically significant stenosis noted. NASCET CRITERIA. The degree of internal carotid artery stenosis is based on NASCET criteria. Normal is no stenosis. Mild is less than 50% stenosis. Moderate is 50-69% stenosis. Severe is 70% to 99% stenosis. Total occlusion is no detectable patent lumen.
== END | disposition home or self-care (01) ==
LOC: RAH 07:43
PROVIDERS: ATTEND Internal Medicine Critical Care Medicine
DX: I65.23 Occlusion and stenosis of bilateral carotid arteries (principal); I13.0 Hypertensive heart and chronic kidney disease with heart failure and stage 1 through stage 4 chronic kidney disease, or unspecified chronic kidney disease; N18.4 Chronic kidney disease, stage 4 (severe)
CPT/HCPCS: 93880

== ENCOUNTER 2024-11-13 09:17 | Observation (INO) | payer OTHER ==
[~2024-11-13] VITALS: Ht 175.3 cm; Wt 71.4 kg
[~2024-11-13 09:17] MED LIST changes: -EZET10TA48 PO; +EZET10TA80 PO; +ISOS-58 PO; -ISOS20TA85 PO; -LEVO25CA4 PO; +LEVO25CA5 PO
--- NOTE | 2024-11-13 09:43 | ERN ---
General Chief Complaint: Flank Pain Stated Complaint: LEFT FLANK ABD PAIN Time Seen by MD: 09:24 Source: patient History of Present Illness Initial Comments My patient is an 83-year-old gentleman who presented to the ED with complaint of left flank pain. Patient states that pain began 2 days ago and is getting worse. He denies nausea or vomiting. Pain does not radiate and is localized to the left flank area. Patient does not report any history of renal stones. He states that he often consumes red meat. Timing/Duration: getting worse Severity: moderate Allergies: Coded Allergies: iodine (Verified Allergy, Unknown, 02/22/17) Home Meds Active Scripts Labetalol HCl (Labetalol HCl) 200 Mg Tablet, 100 MG PO BID, #60 TAB Prov:KENJIEMMAKeylaBONI B FEEDER ASSOCIATE 01/14/24 Reported Medications Pantoprazole Sodium (Pantoprazole Sodium) 40 Mg Tablet.dr, 40 MG PO AM, TAB 01/10/24 Isosorbide Mononitrate (Isosorbide Mononitrate) 20 Mg Tablet, 60 MG PO AM, TAB 01/10/24 Levothyroxine Sodium (Levothyroxine) 25 Mcg Capsule, 25 MCG PO AM, CAP 01/10/24 Telmisartan (Telmisartan) 80 Mg Tablet, 1 TAB PO DAILY for 30 Days, #30 TAB 0 Refills 01/10/24 Rosuvastatin Calcium (Rosuvastatin Calcium) 40 Mg Tablet, 40 MG PO HS, TAB 01/10/24 Duloxetine HCl (Duloxetine HCl) 30 Mg Capsule.dr, 30 MG PO AM, CAP 01/10/24 Allopurinol (Allopurinol) 100 Mg Tablet, 100 MG PO AM, TAB 01/10/24 Ezetimibe (Ezetimibe) 10 Mg Tablet, 10 MG PO AM, TAB 01/10/24 Labetalol HCl (Labetalol HCl) 100 Mg Tablet, 100 MG PO BID, TAB 01/10/24 Sodium Bicarbonate (Sodium Bicarbonate) 650 Mg Tablet, 650 MG PO BID, TAB 01/10/24 Clopidogrel Bisulfate (Clopidogrel) 75 Mg Tablet, 75 MG PO AM, TAB 01/10/24 Aspirin (ASPIRIN 81 MG ECTAB) 81 Mg Ectab, 81 MG PO DAILY, TAB.EC 08/08/21 Past Medical History Past Medical History: No Pertinent History, CHF, Diabetes-Type II, Hypertension Medical History Other: HEART STENTS Past Surgical History: CABG Surgical History Other: VASECTOMY/REVERSAL Family History Family History: HTN Social History Social History: Smokers, Lives with family, Other Constitutional: (-) chills, (-) diaphoresis, (-) fever, (-) malaise, (-) weakness, (-) other documentation EENTM: (-) eye pain, (-) blurred vision, (-) tearing, (-) double vision, (-) ear pain, (-) ear discharge, (-) nose pain, (-) nose congestion, (-) throat pain, (-) Throat swelling, (-) mouth pain, (-) tooth pain, (-) mouth swelling, (-) other documentation Respiratory: (-) cough, (-) orthopnea, (-) short of breath, (-) stridor, (-) wheezing, (-) other documentation Cardiovascular: (-) chest pain, (-) edema, (-) palpitations, (-) syncope, (-) dyspnea on exertion, (-) other documentation Gastrointestinal/Abdominal: (+) abdominal pain Genitourinary: (-) penile discharge, (-) dysuria, (-) frequency, (-) hematuria, (-) pain, (-) other documentation Musculoskeletal: (-) Neck pain, (-) back pain, (-) Flank Pain, (-) joint pain, (-) joint swelling, (-) muscle pain, (-) muscle stiffness, (-) gout, (-) other documentation Skin: (-) laceration, (-) contusion, (-) abrasion, (-) abscess, (-) rash, (-) change in color, (-) change in hair, (-) change in nails, (-) diaphoresis, (-) d ryness, (-) other documentation Neuro: (-) altered mental status, (-) headache, (-) syncope, (-) paralysis, (-) numbness, (-) seizure, (-) pre-existing deficit, (-) tremors, (-) weakness, (-) dizziness, (-) slurred speech, (-) vertigo, (-) other documentation Psych: (-) depression, (-) suicidal ideation, (-) anxiety, (-) emotional problems, (-) auditory hallucinations, (-) visual hallucinations Physical Exam General Appearance: (+) apparent distress Orientation: (+) alert, (+) oriented x 3 Head/Face Trauma: No Ear, Nose, Throat: (+) hearing grossly normal, (+) normal ENT inspection, (+) moist mucous membraine Neck: (+) normal inspection, (+) supple, (+) full range of motion, (+) no JVD, (+) non-tender, (+) no bruit, (+) tender, (+) limited range of motion, (+) tender lateral, (+) tender midline, (+) thyromegaly, (+) lymphadenopathy, (+) masses, (+) carotid bruit, (+) other documentaion Respiratory: (+) chest non-tender, (+) lungs clear, (+) well ventilated; (-) decreased breath sounds, (-) retractions, (-) abnormal breath sound, (-) crackles, (-) plerual rub, (-) rales, (-) rhonchi, (-) stridor, (-) wheezing, (- ) other documentation Heart: (+) regular Gastrointestinal: (+) tender Extremities: (+) normal range of motion, (+) non-tender, (+) normal inspection Neurologic/Psychiatric: (+) normal speech, (+) no motor defecits, (+) no sensory deficits Results Laboratory and Microbiology Lab and Micro Result Laboratory Tests Test 11/13/24 09:48 11/13/24 12:00 White Blood Count 7.0 K/uL (4.8-10.8) Red Blood Count 4.52 MIL/uL (4.50-6.20) Hemoglobin 14.2 g/dL (14.0-18.0) Hematocrit 44.4 % (42-54) Mean Corpuscular Volume 98.2 fL (79-99) Mean Corpuscular Hemoglobin 31.4 pg (27.0-33.0) Mean Corpuscular Hemoglobin Concent 32.0 g/dL (32.0-36.0) Red Cell Distribution Width 14.5 % (11.0-15.5) Platelet Count 146 K/uL (130-400) Mean Platelet Volume 9.6 fL (7.5-10.5) Immature Granulocyte % (Auto) 0.4 % (0-1) Neutrophils (%) (Auto) 62.2 % (40.0-77.0) Lymphocytes (%) (Auto) 24.9 % (21.0-51.0) Monocytes (%) (Auto) 8.6 % (3.0-13.0) Eosinophils (%) (Auto) 3.2 % (0.0-8.0) Basophils (%) (Auto) 0.7 % (0.0-5.0) Neutrophils # (Auto) 4.3 K/uL (1.8-7.7) Lymphocytes # (Auto) 1.7 K/uL (1.0-4.8) Monocytes # (Auto) 0.6 K/uL (0.1-1.0) Eosinophils # (Auto) 0.22 K/uL (0.00-0.70) Basophils # (Auto) 0.05 K/uL (0.00-0.20) Absolute Immature Granulocyte (auto 0.03 K/uL (0-1) Nucleated Red Blood Cells 0.0 % (0.0-0.19) Sodium Level 139 mmol/L (136-145) Potassium Level 5.3 mmol/L (3.5-5.1) H Chloride Level 103 mmol/L (101-111) Carbon Dioxide Level 28 mmol/L (21-32) Blood Urea Nitrogen 36 mg/dL (7-18) H Creatinine 2.0 mg/dL (0.5-1.3) H Glomerular Filtration Rate Calc 33 mL/min (>90) Random Glucose 175 mg/dL (70-105) H Total Calcium 9.0 mg/dL (8.5-10.1) Urine Color LIGHT-YELLOW (YELLOW) Urine Appearance CLEAR (CLEAR) Urine pH 7.0 (5.0-8.0) Urine Specific [place] 1.022 (1.001-1.031) Urine Protein 30 mg/dL (NEGATIVE) H Urine Glucose (UA) >=1000 mg/dL (NEGATIVE) H Urine Ketones NEGATIVE mg/dL (NEGATIVE) Urine Occult Blood NEGATIVE (NEGATIVE) Urine Nitrate NEGATIVE (NEGATIVE) Urine Bilirubin NEGATIVE mg/dL (NEGATIVE) Urine Urobilinogen 0.2 mg/dL (0.2-1.0) Urine Leukocyte Esterase NEGATIVE Mason/uL Urine RBC 0-1 /HPF (0-1) Urine WBC 2-5 /HPF (0-1) H Urine Bacteria None /HPF (None Seen) Urine Hyaline Casts 2-5 /LPF (0-1 /LPF) H EKG/XRAY/US/CT/MRI CT Scan Comment [address] [place] [address] IMAGING REPORT Signed PATIENT: NAMITA CARRANZA MR#: [id number] : 1940 SEX: M AGE: 83 LOCATION: [facility] ORDER 7 STATUS: REG REPORT#: [id number] SERVICE REASON: Left flank pain. ORDERING PHYSICIAN: ANDREIA CHARLES MD PROCEDURE: ABD PEL WO - CT ABDOMEN/PELVIS W/O CONTRAST EXAM: CT Abdomen and Pelvis without IV contrast CLINICAL HISTORY: Left flank pain. TECHNIQUE: Thin collimated axial CT images of the abdomen and pelvis were obtained with sagittal and coronal reformatted images also submitted. CT scan is done according to ALARA (As Low As Reasonably Achievable). CONTRAST: None. COMPARISON: Prior CT abdomen and pelvis dated 01/05/20. FINDINGS: Unremarkable visualized lung parenchyma. No focal abnormality within the liver, gallbladder, pancreas, spleen, adrenals. Bilateral renal cortical scarring. Bilateral small renal cortical cysts measuring up to 2 cm. Mild colonic diverticulosis with no acute diverticulitis. Mild constipation. There is no obvious bowel wall thickening. Bowel loops are normal in caliber without evidence of obstruction or ileus. The appendix is normal. There is no abnormality within the urinary bladder. The prostate is normal in size with a small calcification on the left side. Extensive atherosclerotic wall calcifications in the abdominal aorta and its branches. Tortuous aorta with a 3.8 cm saccular aneurysm at the right posterolateral aspect of the infrarenal abdominal aorta. No lymphadenopathy. No free fluid. There is no acute osseous abnormality. 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 IMPRESSIONS: No acute process in the abdomen or pelvis. No renal or ureteric calculus. Extensive atherosclerotic wall calcifications in the abdominal aorta and its branches. Tortuous aorta with a stable saccular aneurysm at the right posterolateral aspect of the infrarenal abdominal aorta. Bilateral renal cortical scarring with small renal cortical cysts. Mild colonic diverticulosis with no acute diverticulitis. Mild constipation. 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 No significant interval change. /[place] DICTATED BY: ROSE MARIE MCINTYRE Jr., MD DATE: 11/13/241315 ELECTRONICALLY SIGNED BY: ROSE MARIE MCINTYRE Jr., MD DATE: 11/13/241315 MDM MDM: Differential diagnosis: Renal cyst, worsening kidney function, hyperkalemia, AAA Rationale: Tests considered and ordered secondary to shared decision making include: Previous outside records reviewed: Old ER visits. Risk of complication and/or morbidity or mortality of patient management: None Medications-Per medication reconciliation Need for hospitalization: Patient does not meet criteria for hospitalization. Need for emergency major/minor surgery: No There are no social concerns with this patient. Prescription drug management Prescriptions will include symptomatic care Patient's prior external medical records from other ER visits were reviewed by me as indicated. Prior testing and results from previous visits were reviewed. Prior tests were taken into account with medical decision making and resource utilization, independent historian/historians were used to obtain complete medical history. I independently interpreted the test that were performed, results were reviewed by me and considered findings on radiology if ordered. Medical management and examination interpretation discussions were had by me with other qualified healthcare professionals as indicated for the patient's care. Patient will be admitted under the care of community health group for ongoing management. ED Course Orders Procedure Category Date Status Time Ct Abdomen/Pelvis W/O CT 11/13/24 Resulted Contrast 09:37 Cbc With Differential LAB 11/13/24 Complete 09:37 Basic Metabolic Panel LAB 11/13/24 Complete 09:37 Urinalysis Profile LAB 11/13/24 Complete 09:37 Na Zircon PHA 11/13/24 Complete Cyclosil-Lokelma 10g 13:00 Current Medications Medications (Trade) Dose Ordered Sig/Jossy Route PRN Reason Start Time Stop Time Status Last Admin Dose Admin Sodium Zirconium Cyclosilicate (Lokelma 10gm Powder) 10 gm ONCE ONCE PO 11/13/24 13:00 11/13/24 13:01 DC 11/13/24 13:04 Vital Signs Date Time Temp Pulse Resp B/P (MAP) Pulse Ox O2 Delivery O2 Flow Rate FiO2 11/13/24 09:59 72 15 130/83 95 Room Air* 0 21 11/13/24 09:20 97.0 78 16 128/86 99 Room Air 0 DX & DISP Disposition: Inpatient Decision to Admit Time: 13:38 Departure Impression: Primary Impression: Renal cyst Additional Impressions: Worsening renal function, AAA (abdominal aortic aneurysm), Hyperkalemia Condition: Stable Referrals: JOHNY ALMANZA MD (PCP) ANDREIA CHARLES MD Nov 13, 2024 09:43 REBECA NICOLAS MD Nov 13, 2024 13:18
[2024-11-13 09:53] LABS: IMMATURE GRANULOCYTE ABSOLUTE 0.03 K/uL (0-1); NUCLEATED RED BLOOD CELLS 0.0 % (0.0-0.19); PLATELET COUNT (AUTO) 146 K/uL (130-400); RED BLOOD CELL COUNT(AUTO) 4.52 MIL/uL (4.50-6.20); RED CELL DISTRIBUTION WIDTH 14.5 % (11.0-15.5); WHITE BLOOD COUNT (AUTO) 7.0 K/uL (4.8-10.8)
[2024-11-13 10:02] LABS: CREATININE 2.0 mg/dL (0.5-1.3); GLOMERULAR FILTR. RATE CALC 33.0 mL/min (>90); GLUCOSE,RANDOM 175.0 mg/dL (70-105); SODIUM SERUM 139.0 mmol/L (136-145); UREA NITROGEN, BLOOD 36.0 mg/dL (7-18)
[2024-11-13 12:17] LABS: APPEARANCE,URINE CLEAR (CLEAR); GLUCOSE, URINE (UA) >=1000 mg/dL (NEGATIVE); LEUKOCYTE ESTERASE ,URINE NEGATIVE Leu/uL (NEGATIVE); NITRATE,URINE NEGATIVE (NEGATIVE); OCCULT BLOOD,URINE NEGATIVE (NEGATIVE)
--- NOTE | 2024-11-13 12:17 | HMCIMG ---
EXAM: CT Abdomen and Pelvis without IV contrast CLINICAL HISTORY: Left flank pain. TECHNIQUE: Thin collimated axial CT images of the abdomen and pelvis were obtained with sagittal and coronal reformatted images also submitted. CT scan is done according to ALARA (As Low As Reasonably Achievable). CONTRAST: None. COMPARISON: Prior CT abdomen and pelvis dated 01/05/20. FINDINGS: Unremarkable visualized lung parenchyma. No focal abnormality within the liver, gallbladder, pancreas, spleen, adrenals. Bilateral renal cortical scarring. Bilateral small renal cortical cysts measuring up to 2 cm. Mild colonic diverticulosis with no acute diverticulitis. Mild constipation. There is no obvious bowel wall thickening. Bowel loops are normal in caliber without evidence of obstruction or ileus. The appendix is normal. There is no abnormality within the urinary bladder. The prostate is normal in size with a small calcification on the left side. Extensive atherosclerotic wall calcifications in the abdominal aorta and its branches. Tortuous aorta with a 3.8 cm saccular aneurysm at the right posterolateral aspect of the infrarenal abdominal aorta. No lymphadenopathy. No free fluid. There is no acute osseous abnormality. 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 IMPRESSIONS: No acute process in the abdomen or pelvis. No renal or ureteric calculus. Extensive atherosclerotic wall calcifications in the abdominal aorta and its branches. Tortuous aorta with a stable saccular aneurysm at the right posterolateral aspect of the infrarenal abdominal aorta. Bilateral renal cortical scarring with small renal cortical cysts. Mild colonic diverticulosis with no acute diverticulitis. Mild constipation. 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 No significant interval change. /[place]
[2024-11-13 12:23] LABS: ADD UA MICROSCOPIC YES
[2024-11-13] MEDS: NA ZIRCON CYCLOSIL(LOKELMA 10GM) PO ONE (13:04)
--- NOTE | 2024-11-13 14:42 | NUR ---
dcp: home met with pt and his Chantal Franks [phone]. Pt states he remains able to complete ADLS. Pt has a cane if needed, no provider, HH or HD PCP is Zenon Guzman and uses [facility] for rx needs. Couple denies need [facility] and pt will return home at sd. Addendum: 11/13/24 at 1513 by LLUVIA CERON Amended: Links added.
[2024-11-13] MEDS ORDERED: guaiFENesin-DM 200/20MG 10ML PO PRN (16:00)
[2024-11-13] MEDS ORDERED: LOPERAMIDE HCL 2 MG CAP PO PRN (16:00)
[2024-11-13] MEDS ORDERED: BENZOCAINE/MENTH/CETYLPYRD CL 1 EACH LOZENGE MM PRN (16:00)
[2024-11-13] MEDS ORDERED: NITROGLYCERIN 0.4 MG SL TAB SL PRN (16:00)
[2024-11-13] MEDS ORDERED: MAG/ALUM/SIMETH 30 ML UDCUP PO PRN (16:00)
[2024-11-13] MEDS ORDERED: ARTIFICAL TEARS SOL 15 ML OP PRN (16:00)
[2024-11-13] MEDS ORDERED: LIDOCAINE HCL 2% VISCOUS 30 ML, MAG/ALUM/SIMETH 30ML 30 ML, DICYCLOMINE HCL 20 MG PO PRN (16:00)
[2024-11-13] MEDS ORDERED: MAGNESIUM 2GM PREMIX 50ML 50 ML IV PRN (16:00)
[2024-11-13] MEDS ORDERED: LACTULOSE 20 GM/30 ML UDCUP PO PRN (16:00)
[2024-11-13] MEDS: 0.9%NACL 1000ML 1,000 ML IV SCH (16:44)
[2024-11-13 16:45] LABS: CREATINE KINASE, TOTAL 67.0 U/L (21-232)
--- NOTE | 2024-11-13 16:56 | HMCIMG ---
EXAM: CR Chest, 1 View. CLINICAL HISTORY: congstion COMPARISON: Radiograph dated January 09, 2024 FINDINGS: LUNGS: There is no mass, infiltrate, or acute pulmonary abnormality. PLEURAL SPACES: No pleural effusion or pneumothorax. MEDIASTINUM: Prior sternotomy. Heart size is stable. Pulmonary vessels are within normal limits. BONES: No aggressive appearing osseous lesion seen. IMPRESSION: 1. No acute cardiopulmonary findings. /[place]
--- NOTE | 2024-11-13 17:40 | NUR ---
PT TAKEN TO MRI AT THIS TIME.
[2024-11-13] MEDS ORDERED: ALLO100T PO (18:38)
[2024-11-13] MEDS ORDERED: CLOP75TA32 PO (18:38)
[2024-11-13] MEDS ORDERED: ISOS60TA77 PO (18:40)
[2024-11-13] MEDS ORDERED: LABE100T7 PO (18:41)
[2024-11-13] MEDS ORDERED: TELM80TA10 PO (18:41)
[2024-11-13] MEDS ORDERED: DULO30CA52 PO (18:43)
[2024-11-13] MEDS ORDERED: EZET10TA80 PO (18:44)
[2024-11-13] MEDS ORDERED: LEVO25CA5 PO (18:44)
[2024-11-13] MEDS ORDERED: DULA0.75 SQ (18:47)
--- NOTE | 2024-11-13 19:25 | NUR ---
PT CARE ASSUMED AT THIS TIME
--- NOTE | 2024-11-13 19:30 | HP ---
[facility] HISTORY & PHYSICAL Date Patient Seen: Nov 13, 2024 Time of Visit: 19:26 Supervising Physician: Dr Yoseph ahn Primary Care Physician: ARCHIE Outpatient Specialists: Elayne (renal) Elayne (cardio) Inpatient Consults: [ ] PROBLEM LIST: Hypertension, POA Hyperlipidemia, POA DM type 2, with hyperglycemia, POA CKD stage 3, POA Hyperkalemia, POA Abdominal aortic aneurysm, recent CT of the abdomen showed 3.6 cm infrarenal abdominal aortic saccular aneurysm, unchanged from previous imaging on record History of CAD s/p CABG, stent placement, on Plavix and aspirin Acute flank pain, CT abdomen negative for any renal calculus, UA negative for infection, thoracolumbar imaging pending POA Constipation, POA PLAN: Admit to medical-surgical floor VS per unit protocol ISS and fingerstick per unit protocol Keep SBP less than 160 P.r.n. hydralazine and labetalol Heart healthy diet Bilateral SCDs Multimodal pain relief CBC, CMP, magnesium level daily HPI: 83-year-old male with past medical history of hypertension, hyperlipidemia, DM type 2, hypothyroidism, CAD as s/p stent placement and CABG who presented to ED with complaint of left flank pain worse with exertion that started yesterday with no associated nausea vomiting, fever, abdominal pain, or dysuria. In ED chest x-ray was done showed no acute intrapulmonary infiltrates, CBC unrevealing for any acute infection, CT of the abdomen showed stable saccular aneurysm measuring 3.8 in the right posterolateral aspect of the infrarenal abdominal aorta, CMP consistent with CKD, with mildly elevated potassium level of 5.3. At present patient is currently hemodynamically stable, on room air with appropriate oxygen saturation, denies any headache, confusion, chest pain, shortness of breath, fever, cough, or flu-like symptoms. Patient has remote history of smoking, denies any alcohol use or illicit drug use. PAST MEDICAL HX: see above PAST SURGICAL HX: noncontributory SOCIAL HISTORY: See HPI Coded Allergies: iodine (Verified Allergy, Unknown, 02/22/17) REVIEW OF SYSTEMS: 12 point ROS reviewed with patient. Pertinent positives mentioned above. Otherwise negative. PHYSICAL EXAM: GENERAL: alert, weak, awake oriented x 3 HEENT: EOMI, Sclera non icteric, moist mucosa NECK: Supple, no JVD, trachea midline LUNGS: Clear breath sounds bilaterally. No wheezes HEART: Regular rate and rhythm. Normal S1 and S2, without murmurs ABD: Abdomen soft, nontender. Bowel sounds present EXT: No clubbing cyanosis or edema NEURO: Alert and oriented to person, follows commands Vital Signs (last 8hr) Date Time Temp Pulse Resp B/P (MAP) Pulse Ox O2 Delivery O2 Flow Rate FiO2 11/13/24 17:11 69 20 208/85 98 Room Air* 0 21 11/13/24 16:56 71 15 184/91 94 Room Air* 0 21 11/13/24 15:28 75 18 196/100 96 Room Air* 0 21 11/13/24 13:49 65 16 144/96 97 Room Air* 0 21 LABS: Hematology Labs: Test 11/13/24 09:48 Range/Units White Blood Count 7.0 4.8-10.8 K/uL Red Blood Count 4.52 4.50-6.20 MIL/uL Hemoglobin 14.2 14.0-18.0 g/dL Hematocrit 44.4 42-54 % Mean Corpuscular Volume 98.2 79-99 fL Mean Corpuscular Hemoglobin 31.4 27.0-33.0 pg Mean Corpuscular Hemoglobin Concent 32.0 32.0-36.0 g/dL Red Cell Distribution Width 14.5 11.0-15.5 % Platelet Count 146 130-400 K/uL Mean Platelet Volume 9.6 7.5-10.5 fL Immature Granulocyte % (Auto) 0.4 0-1 % Neutrophils (%) (Auto) 62.2 40.0-77.0 % Lymphocytes (%) (Auto) 24.9 21.0-51.0 % Monocytes (%) (Auto) 8.6 3.0-13.0 % Eosinophils (%) (Auto) 3.2 0.0-8.0 % Basophils (%) (Auto) 0.7 0.0-5.0 % Neutrophils # (Auto) 4.3 1.8-7.7 K/uL Lymphocytes # (Auto) 1.7 1.0-4.8 K/uL Monocytes # (Auto) 0.6 0.1-1.0 K/uL Eosinophils # (Auto) 0.22 0.00-0.70 K/uL Basophils # (Auto) 0.05 0.00-0.20 K/uL Absolute Immature Granulocyte (auto 0.03 0-1 K/uL Nucleated Red Blood Cells 0.0 0.0-0.19 % Chemistry Labs: Test 11/13/24 16:49 11/13/24 16:15 11/13/24 09:48 Range/Units Whole Blood Glucose 122 H 70-110 MG/DL Total Creatine Kinase 67 # 21-232 U/L Troponin I High Sensitivity 11.0 4-75 ng/L EG-Ect-D-Type Natriuretic Peptide 457 H 0-450 pg/mL Sodium Level 139 136-145 mmol/L Potassium Level 5.3 H 3.5-5.1 mmol/L Chloride Level 103 101-111 mmol/L Carbon Dioxide Level 28 21-32 mmol/L Blood Urea Nitrogen 36 H 7-18 mg/dL Creatinine 2.0 H 0.5-1.3 mg/dL Glomerular Filtration Rate Calc 33 >90 mL/min Random Glucose 175 H 70-105 mg/dL Total Calcium 9.0 8.5-10.1 mg/dL DIAGNOSTICS / RADIOLOGY RESULTS: EXAM: CT Abdomen and Pelvis without IV contrast CLINICAL HISTORY: Left flank pain. TECHNIQUE: Thin collimated axial CT images of the abdomen and pelvis were obtained with sagittal and coronal reformatted images also submitted. CT scan is done according to ALARA (As Low As Reasonably Achievable). CONTRAST: None. COMPARISON: Prior CT abdomen and pelvis dated 01/05/20. FINDINGS: Unremarkable visualized lung parenchyma. No focal abnormality within the liver, gallbladder, pancreas, spleen, adrenals. Bilateral renal cortical scarring. Bilateral small renal cortical cysts measuring up to 2 cm. Mild colonic diverticulosis with no acute diverticulitis. Mild constipation. There is no obvious bowel wall thickening. Bowel loops are normal in caliber without evidence of obstruction or ileus. The appendix is normal. There is no abnormality within the urinary bladder. The prostate is normal in size with a small calcification on the left side. Extensive atherosclerotic wall calcifications in the abdominal aorta and its branches. Tortuous aorta with a 3.8 cm saccular aneurysm at the right posterolateral aspect of the infrarenal abdominal aorta. No lymphadenopathy. No free fluid. There is no acute osseous abnormality. 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 IMPRESSIONS: No acute process in the abdomen or pelvis. No renal or ureteric calculus. Extensive atherosclerotic wall calcifications in the abdominal aorta and its branches. Tortuous aorta with a stable saccular aneurysm at the right posterolateral aspect of the infrarenal abdominal aorta. Bilateral renal cortical scarring with small renal cortical cysts. Mild colonic diverticulosis with no acute diverticulitis. Mild constipation. 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 No significant interval change EXAM: CR Chest, 1 View. CLINICAL HISTORY: congstion COMPARISON: Radiograph dated January 09, 2024 FINDINGS: LUNGS: There is no mass, infiltrate, or acute pulmonary abnormality. PLEURAL SPACES: No pleural effusion or pneumothorax. MEDIASTINUM: Prior sternotomy. Heart size is stable. Pulmonary vessels are within normal limits. BONES: No aggressive appearing osseous lesion seen. IMPRESSION: 1. No acute cardiopulmonary findings. PLAN NEURO: Minimize central acting medications as possible. Maintain fall precautions, adequate lighting during the day PULMONARY: Supplemental 02 as needed. Maintain aspiration precautions at all times CARDIOVASCULAR: Follow hemodynamics. Vital signs per facility protocol GI & NUTRITION: Continue with nutritional support. Continue stool softeners and laxatives as needed. KIDNEYS & ELECTROLYTES: Strict monitoring of intake, output and overall fluid balance. Avoid nephrotoxic medications to the extent possible. Medications to be dosed according to renal function. Monitor electrolytes and replace as needed ENDOCRINE: Maintain blood glucose between 100-180 at all times. Hypoglycemia protocol in place INFECTIOUS DISEASE: Trend temperature, WBC and procalcitonin level Follow cultures, deescalate antibiotics as soon as possible. Panculture if new onset fever ONCOLOGY/HEMATOLOGY/COAGULATION: Monitor for s/s of bleeding Monitor hemoglobin, coagulation studies as needed SKIN: Pressure ulcer prevention per facility protocol Specialty mattress ORTHO/REHAB: Continue PT/OT Prophylaxis: Continue GI and DVT prophylaxis Code Status: Full Resuscitation Disposition: TBD Supervising physician: BRENDON Ball PRODUCT SAFETY TECHNICAL ASSISTANT Nov 13, 2024 19:30
--- NOTE | 2024-11-13 19:43 | NUR ---
BRENDON DIAMOND EXPERT AT BEDSIDE AT THIS TIME
--- NOTE | 2024-11-13 19:48 | NUR ---
NOTIFIED BRENDON ZHAO ABOUT BLOOD PRESSURE AT THIS TIME. ORDERS GIVEN.
[2024-11-13] MEDS: FAMOTIDINE 20MG VIAL IV SCH (21:23)
--- NOTE | 2024-11-13 22:15 | NUR ---
REPORT GIVEN TO AMBROSE ESCALANTE AT THIS TIME
--- NOTE | 2024-11-13 22:20 | NUR ---
BRENDON TECHNICAL PROJECT COORDINATOR MADE AWARE OF FLUCTUATING BP AT THIS TIME. ORDERS GIVEN. PT SHOWS NO SIGNS OF DISTRESS. PT DENIES CHEST PAIN AND SOB AT THIS TIME. VS : HR- 73 RR- 18 SpO2 - 96% RA BP- 173/75
[2024-11-13 23:00] VITALS: BP 189/105; PULSE 80; RESP 18; TEMP 97.9; O2SAT 96
--- NOTE | 2024-11-13 23:00 | NUR ---
PATIENT REPORTS NOT HAVING ANY HOME MEDICATIONS AVAILABLE AT THIS TIME FOR MEDICATION RECONILIATION. MEDICATION RECONCILIATION NOT COMPLETED AT THIS TIME. PATIENT EDUCATED ON THE IMPORTANCE OF PROVIDING ACCURATE HOME MEDICATION LIST AND ENCOURAGED TO BRING LIST OR MEDICATIONS WHEN AVAILABLE. PT VERBILIZED UNDERSTANDING.
--- NOTE | 2024-11-13 23:00 | NUR ---
PT ARRIVED TO ROOM 224 FROM ER VIA STRETCHER. PT AMBULATED FROM STRETCHER TO BED, WELL TOLERATED. EDUCATED PT TO NOT GET OUT OF BED BY SELF AND IN USE OF CALL LIGHT, VERBALIZED UNDERSTANDING. LEFT BED LOW, LOCKED, RAILS UPX2, AND CALL LIGHT IN REACH.
[2024-11-13] MEDS ORDERED: DAPA5TAB PO (23:52)
[2024-11-14] VITALS: BP 200/93; PULSE 68; RESP 18; TEMP 97.9
[2024-11-14] LABS: CREATINE KINASE, TOTAL 127.0 U/L (21-232)
[2024-11-14] MEDS: ISOSORBIDE MONO 60MG SR TAB PO ONE (00:26)
[2024-11-14 03:51] LABS: ASPARTATE AMINOTRANSFERASE 21.0 U/L (10-37); CREATININE 1.5 mg/dL (0.5-1.3); GLOMERULAR FILTR. RATE CALC 46.0 mL/min (>90); GLUCOSE,RANDOM 143.0 mg/dL (70-105); SODIUM SERUM 138.0 mmol/L (136-145); TOTAL PROTEIN, SERUM 6.3 g/dL (6.0-8.3); UREA NITROGEN, BLOOD 31.0 mg/dL (7-18)
[2024-11-14 04:00] VITALS: BP 126/71; PULSE 97; RESP 18; TEMP 98
--- NOTE | 2024-11-14 07:23 | HMCIMG ---
EXAMINATION: ULTRASOUND EXAMINATION OF THE KIDNEYS WITH SPECTRAL DOPPLER OF THE RENAL VESSELS. CLINICAL HISTORY: Left flank pain. COMPARISON: CT abdomen and pelvis without contrast dated 06/24/2022. TECHNIQUE: Grayscale and color ultrasound images of the kidneys, and spectral Doppler of the renal arteries are submitted. FINDINGS: The kidneys are normal in caliber, the right kidney measures 9.0 x 3.6 x 4.4 cm and the left kidney measures 10.7 x 4.0 x 4.8 cm in craniocaudal, AP, and transverse dimensions respectively. There is normal renal cortical thickness, and increased cortical echogenicity. There is no renal calculus, mass, or hydronephrosis. There is a simple cortical cyst that measures 2.3 x 1.9 cm in the right renal upper pole. There is a simple cortical cyst that measures 1.7 x 1.6 cm in the left renal mid pole. Right Peak systolic velocities within the proximal, mid, and distal main right renal artery are 490, 253, and 43 cm/s respectively (resistive index of 0.48, 0.71, and 0.61). Peak systolic velocities within the right intrarenal upper, mid, and lower pole arteries are 41, 27, and 34 cm/s respectively (resistive index of 0.57, 0.56, and 0.58). Left Peak systolic velocities within the proximal, mid, and distal main left renal artery are 167, 231, and 129 cm/s respectively (resistive index of 0.86, 0.89, and 0.76). Peak systolic velocities within the left intrarenal upper, mid, and lower pole arteries are 54, 56, and 61 cm/s respectively (resistive index of 0.68, 0.75, and 0.68). Peak systolic velocity within the abdominal aorta at the level of the renal arteries is 86 cm/s Right renal to aortic ratio: 5.8 Left renal to aortic ratio: 2.7 There is tardus-parvus waveforms in the right kidney. IMPRESSION: Increased velocity with tardus-parvus waveforms and RI of 5.8 cm in the right kidney suggestive of more than 60% renal artery stenosis. Bilateral renal parenchymal disease. Bilateral simple renal cortical cysts. Recommend CT angiogram. /[place]
--- NOTE | 2024-11-14 07:30 | HMCIMG ---
EXAM: MR Lumbar Spine Without Intravenous Contrast. CLINICAL HISTORY: Intractable pain. Abnormal findings on the CT abdomen. TECHNIQUE: Magnetic resonance images of the lumbar spine in multiple planes. CONTRAST: None. COMPARISON: Prior CT abdomen and pelvis dated November 13, 2024. Prior MRI lumbar spine dated December 09, 2020 FINDINGS: For this examination, spinal levels were labeled assuming five [id number], lumbar-type vertebrae, with the inferior labeled L5. No acute fracture. Loss of lumbar lordosis. Normal vertebral body height and marrow signal intensity. Multilevel disc desiccation and disc bulges from L1-L2, through L5-S1 level, with multilevel degenerative facet arthropathy. Bilateral pars defect at the L5-S1 level without evidence of anterolisthesis. Conus medullaris terminates at the T12-L1 level. No abnormal epidural masses. The surrounding soft tissues are unremarkable. Individual spinal levels are described as follows: T12-L1: No disc bulge or herniation. No neural foraminal, lateral recess, or spinal canal stenosis. L1-L2: Mild disc desiccation with a minimal 3 mm disc bulge and a small right paracentral annular tear. No neural foraminal, lateral recess, or spinal canal stenosis. L2-L3: Mild disc desiccation with minimal 2.5 mm disc bulge. Mild bilateral facet arthropathy is left more than right, and left facet joint effusion. Mild narrowing of the left neural foramina and bilateral lateral recesses. Abutment of the bilateral traversing L3 nerve. No spinal canal stenosis. L3-L4: Mild disc desiccation. Broad-based circumferential 4 mm disc bulge. Mild bilateral facet arthropathy and ligamentum flavum atrophy. Mild narrowing of the bilateral lateral recesses. No significant neural foraminal narrowing or spinal canal stenosis. L4-L5: Mild disc desiccation. Broad-based circumferential 4 mm disc bulge with a greater left-sided component. Mild bilateral facet arthropathy. No significant lateral recess or neural foraminal narrowing or nerve impingement. L5-S1: Bilateral pars defect with grade 1 anterolisthesis of L5 over S1 (6 mm) with mild bilateral facet arthropathy. Moderate to severe narrowing of the bilateral neural foramina and abutment of the bilateral exiting L5 nerve roots. No spinal canal stenosis. A saccular aneurysm of the abdominal aorta at the level of the L3 vertebra measuring 4.1 cm in length, 4.1 cm in the anterior-posterior dimension, and 3.6 cm in the transverse dimension.A few bilateral renal cortical cysts, the largest on the left kidney interpolar region measuring 3.6 cm. IMPRESSION: No evidence of acute fracture. Normal vertebral body height and marrow signal intensity. Multilevel disc desiccation and disc bulges from L1-L2, through L5-S1 level, with multilevel degenerative facet arthropathy. Bilateral pars defect at the L5-S1 level without evidence of anterolisthesis. Moderate degenerative changes in the lumbar spine as described above. A saccular aneurysm of the abdominal aorta at the level of the L3 vertebra measuring 4.1 cm in length, 4.1 cm in the anterior-posterior dimension, and 3.6 cm in the transverse dimension.A few bilateral renal cortical cysts, the largest on the left kidney interpolar region measuring 3.6 cm. Compared to the prior study, there is no significant interval change. Stable aneurysmal dilatation of the infrarenal aorta. Stable degenerative changes in the lumbar spine. /[place]
[2024-11-14 07:47] LABS: CREATINE KINASE, TOTAL 93.0 U/L (21-232)
[2024-11-14 07:50] VITALS: BP 159/90; PULSE 80; RESP 20; TEMP 98.7
[2024-11-14 08:00] VITALS: O2SAT 96
[2024-11-14] MEDS: HYDROcodone/APAP 5/325 1 TAB TABLET PO ONE (10:54)
--- NOTE | 2024-11-14 13:31 | DS ---
[facility] DISCHARGE SUMMARY Date Patient Seen: Nov 14, 2024 Time of Visit: 13:25 Supervising Physician: Dr Yoseph Alston Primary Care Physician: ARCHIE Outpatient Specialists: Elayne (renal) Elanye (cardio) Inpatient Consults: [ ] PROBLEM LIST: Hypertension, POA Hyperlipidemia, POA DM type 2, with hyperglycemia, POA CKD stage 3, POA Hyperkalemia, POA Abdominal aortic aneurysm, recent CT of the abdomen showed 3.6 cm infrarenal abdominal aortic saccular aneurysm, unchanged from previous imaging on record History of CAD s/p CABG, stent placement, on Plavix and aspirin Acute flank pain, CT abdomen negative for any renal calculus, UA negative for infection, thoracolumbar imaging pending POA Constipation, POA HOSPITAL COURSE: HPI (per admitting provider) The patient was treated for the following problems: ACTIVE PROBLEM LIST FOR THE HOSPITALIZATION: CHRONIC PROBLEMS: continue previous management per PCP unless otherwise indicated 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 He was treated with steroids and noted improvement and we will follow up with his pain management and neurosurgeon. He has agreed follow up with his PCP and discussed return precautions. DISCHARGE MEDICATIONS: Medrol Dosepak Pt hemodynamically stable and afebrile at time of discharge. PCP notified of patients admission, hospital course and discharge. PHYSICAL EXAM: GENERAL: alert, weak, awake oriented x 3 HEENT: EOMI, Sclera non icteric, moist mucosa NECK: Supple, no JVD, trachea midline LUNGS: Clear breath sounds bilaterally. No wheezes HEART: Regular rate and rhythm. Normal S1 and S2, without murmurs ABD: Abdomen soft, nontender. Bowel sounds present EXT: No clubbing cyanosis or edema NEURO: Alert and oriented to person, follows commands FOLLOW-UP: Follow-up with PCP in 2-3 days Follow up with surgery Follow-up with pain management Return precautions discussed RECOMMENDATIONS: See Discharge Instructions This case was seen and discussed with my supervising physician. More than 30 minutes spent on discharge process, including evaluation of the patient, discussion with nursing staff, medication reconciliation and follow-up appointments JAVIER ROACH Nov 14, 2024 13:31
[2024-11-14] MEDS ORDERED: TELMISARTAN 80 MG PO SCH (14:30)
--- NOTE | 2024-11-14 15:22 | NUR ---
DISCHARGE HOME IV AND TELEPAK REMOVED. DISCHARGE INSTRUCTIONS GIVEN AND EXPLAINED TO PATIENT AND DAUGHTER. HOME MEDICATION RETURNED. PATIENT WHEELED DOWN TO PRIVATE CAR.
[2024-11-14] MEDS ORDERED: ISOSORBIDE MONO 60MG SR TAB PO SCH (21:00)
[2024-11-14] MEDS ORDERED: EZETIMIBE 10 MG TAB PO SCH (21:00)
== END 2024-11-14 14:30 | disposition home or self-care (01) ==
LOC: EDH 09:17 → EDHIP 15:55 → 2DH 22:57
PROVIDERS: ADMIT Internal Medicine Critical Care Medicine; ATTEND Internal Medicine Critical Care Medicine
DX: I12.9 Hypertensive chronic kidney disease with stage 1 through stage 4 chronic kidney disease, or unspecified chronic kidney disease (principal); E11.22 Type 2 diabetes mellitus with diabetic chronic kidney disease; N18.30 Chronic kidney disease, stage 3 unspecified; I16.0 Hypertensive urgency; E87.5 Hyperkalemia; N17.9 Acute kidney failure, unspecified; I25.10 Atherosclerotic heart disease of native coronary artery without angina pectoris; E78.5 Hyperlipidemia, unspecified; K59.00 Constipation, unspecified; E11.65 Type 2 diabetes mellitus with hyperglycemia; E03.9 Hypothyroidism, unspecified; I71.40 Abdominal aortic aneurysm, without rupture, unspecified; Z87.891 Personal history of nicotine dependence; Z95.1 Presence of aortocoronary bypass graft; Z95.5 Presence of coronary angioplasty implant and graft; Z79.899 Other long term (current) drug therapy; Z98.890 Other specified postprocedural states
CPT/HCPCS: 96374; 96376 ×2; 96361; 96375 ×2; 99285; 82550 ×3; 84484 ×3; 80048; 83880; 85025; 82948 ×3; 81001; 36415 ×2; 71045; 74176; 93975; 72148; 96372; 83036; 80053; 97161; 97530; G0378 ×22; J3490; J0360 ×2; J1171; J2919; J1885